=== PATIENT | male | born 1950 | race Caucasian/White ===

== ENCOUNTER 2017-06-15 08:54 | Outpatient (CLI) | payer MEDICARE ==
--- NOTE | 2017-06-15 10:25 | CT ---
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 COMPARISON: 12/16/16. FINDINGS: There is a single nonobstructing superior pole renal calculus bilaterally measuring 3-4 mm. There is no hydronephrosis and no ureteral calculus is visualized. Calcified granulomata are seen in the spleen. The liver, pancreas, bilateral adrenal glands, and urinary bladder demonstrate a normal CT appearance . Minimal atelectasis at the left lung base. Lung bases are otherwise clear. The appendix is visualized and normal in caliber. Minimal vascular calcifications are seen in the abdominal aorta. There is no free fluid, fluid collection, or lymphadenopathy seen in the abdomen or pelvis. There is a surgical scar in the ventral aspect lower abdomen. There is stable mild elevation of the left hemidiaphragm. Degenerative changes are seen in the lower lumbar spine with Grade I-II spondylolisthesis of L5 on S1 . There is a low density area seen in the subcutaneous fat in each gluteal region, which may be related to recent injections. IMPRESSION: 1. Nonobstructing bilateral renal calculi. 2. No evidence of lymphadenopathy. 3. Grade I-II spondylolisthesis lumbosacral junction. 4. CT scan abdomen and pelvis is not significantly changed compared to prior exam. POS: [facility]
[2017-06-15] MEDS ORDERED: Iopamidol 370 76% 100 ML VIAL ONE (16:53)
== END 2017-06-15 08:55 | disposition home or self-care (01) ==
LOC: CT 08:54
PROVIDERS: ATTEND Internal Medicine Hematology & Oncology
DX: C7A.012 Malignant carcinoid tumor of the ileum (principal); M43.17 Spondylolisthesis, lumbosacral region
CPT/HCPCS: 74177; 80053; 82248; 83615; 84100; 84550

== ENCOUNTER 2017-12-06 08:50 | Outpatient (CLI) | payer MEDICARE ==
[~2017-12-06 08:50] MED LIST: Iopamidol 370 76% 100 ML VIAL ONE
== END 2017-12-06 08:51 | disposition home or self-care (01) ==
LOC: BICCT 08:50
PROVIDERS: ATTEND Internal Medicine Hematology & Oncology
DX: C7A.012 Malignant carcinoid tumor of the ileum (principal)
CPT/HCPCS: 74177; 82565

== ENCOUNTER 2018-06-16 10:19 | Outpatient (CLI) | payer MEDICARE ==
--- NOTE | 2018-06-16 12:15 | RAD ---
KUB: Date: 06/16/18 HISTORY: Calculus of kidney. FINDINGS: No definite discrete calcification is seen in the right upper quadrant. There is a punctate calcifica tion overlying the 11th rib on the left measuring in the 2-3 mm range which may represent a stone wit hin the upper pole of the left kidney. The bowel gas patter appears nonobstructed. No acute osseous a bnormality. IMPRESSION: Punctate calcification in left upper quadrant may represent a tiny left renal stone. No discrete calc ulus overlies the expected location of the right kidney. POS: [facility]
== END 2018-06-16 10:20 | disposition home or self-care (01) ==
LOC: RAD 10:19
PROVIDERS: ATTEND Urology
DX: N20.0 Calculus of kidney (principal); N28.89 Other specified disorders of kidney and ureter
CPT/HCPCS: 74018

== ENCOUNTER 2018-06-21 09:12 | Outpatient (CLI) | payer MEDICARE ==
--- NOTE | 2018-06-21 10:32 | CT ---
CT abdomen pelvis: 06/21/2018 COMPARISON: 06/15/2017 and 06/16/2018 HISTORY: Malignant neoplasm, carcinoid tumor of the ileum TECHNIQUE: Axial CT imaging at 5 mm intervals from lung bases through pubic symphysis with IV and ora l contrast. Coronal reformatted imaging. FINDINGS: Imaged lung bases are unremarkable. No free intraperitoneal air or fluid. The liver, gallbladder, spleen, pancreas, and adrenal glands demonstrate no acute findings. There is a nonobstructing stone in the upper pole of the left kidney measuring 4 mm. As on the 06/16/2018 examination, hydronephrosis and proximal hydroureter again noted on the right sec ondary to a 4 mm obstructing stone within the mid right ureter. The degree of obstructive uropathy is not significantly changed. The obstructing stone is at the axial level of the L4-5 intervertebral di sc, slightly progressed distally when compared to the prior study at which time it was at the axial l evel of the L3-4 intervertebral disc. No bowel inflammatory change or bowel obstruction is evident. No pelvic, retroperitoneal, or mesenteric lymphadenopathy is appreciated. Review of the osseous structures demonstrates bilateral L5 pars defects. Prominent degenerative judd e noted at the lumbosacral junction. No discrete lytic or blastic bone lesion. IMPRESSION: No CT evidence of metastatic disease. No evidence for bowel inflammatory change, bowel ob struction, or lymphadenopathy. Hydronephrosis and hydroureter on the right secondary to an obstructing stone within the mid right ur eter as detailed above.
[2018-06-21] MEDS ORDERED: ISOVUE-370 76%-LOCM 1 ML ONE (13:42)
== END 2018-06-21 09:13 | disposition home or self-care (01) ==
LOC: BICCT 09:12
PROVIDERS: ATTEND Internal Medicine Hematology & Oncology
DX: C7A.012 Malignant carcinoid tumor of the ileum (principal); N13.30 Unspecified hydronephrosis
CPT/HCPCS: 74177; Q9966

== ENCOUNTER 2018-06-22 14:17 | Outpatient (CLI) | payer MEDICARE ==
--- NOTE | 2018-06-22 14:45 | RAD ---
FSupine view abdomen HISTORY: Calculus of kidney, and 2 0.0. AP view of abdomen is obtained. Comparison made to previous exam from 06/16/2018. Numerous surgical cale seen in the abdomen. A moderate amount of stool seen in the colon. The abdominal gas pattern is nonspecific. Radiopaque densities seen in the upper and midpole of the left kidney compatible with renal calculi. IMPRESSION: Upper and mid pole left renal calculi.
== END 2018-06-22 14:18 | disposition home or self-care (01) ==
LOC: RAD 14:17
PROVIDERS: ATTEND Urology
DX: N20.0 Calculus of kidney (principal)
CPT/HCPCS: 74018

== ENCOUNTER 2018-06-23 10:11 | Outpatient (CLI) | payer MEDICARE ==
[2018-06-23 15:21] LABS: Hemoglobin 13.8 g/dL (14.0-18.0); Mean Corpuscular HGB CONC 34.5 g/dL (32.0-36.0); Mean Corpuscular Hemoglobin 32.6 pg (27.0-31.0); Mean Corpuscular Volume 94.5 fL (78.0-98.0); Mean Platelet Volume 6.7 fL (7.4-10.4); Platelet Count 260 thou/uL (130-400); RBC Distribution Width 11.8 % (11.5-14.5); Red Blood Cell (RBC) Count 4.24 mill/uL (4.70-6.10); White Blood Cell (WBC) Count 9.4 thou/uL (4.8-10.8)
[2018-06-23 16:04] LABS: Anion Gap 12 mmol/L (10-20); BUN (Urea Nitrogen) 11 mg/dL (8.4-25.7); Calc. Creatinine Clearance 0 mL/min (70-130); Calcium 9.3 mg/dL (7.8-10.44); Carbon Dioxide 26 mmol/L (23-31); Chloride 107 mmol/L (98-107); Estimated GFR-MDRD 80; Glucose 154 mg/dL (80-115); Potassium 3.9 mmol/L (3.5-5.1); Sodium 141 mmol/L (136-145)
== END 2018-06-23 10:12 | disposition home or self-care (01) ==
LOC: LABBT 10:11
PROVIDERS: ATTEND Urology
DX: Z01.818 Encounter for other preprocedural examination (principal); Z12.5 Encounter for screening for malignant neoplasm of prostate; N20.0 Calculus of kidney; R35.1 Nocturia; R82.994 Hypercalciuria; N40.0 Benign prostatic hyperplasia without lower urinary tract symptoms; N52.9 Male erectile dysfunction, unspecified
CPT/HCPCS: 80048; 81001; 85027; 93005; 93010

== ENCOUNTER 2018-06-28 10:42 | Day surgery (SDC) | payer MEDICARE ==
[2018-06-23 14:13] VITALS: BMI 27.9
--- NOTE | 2018-06-28 11:57 | RAD ---
FExam: 1 view abdomen COMPARISON: 06/22/2018 HISTORY: Renal calculi FINDINGS: Punctate ossification projects over the left renal silhouette, measures approximately 3 mm. Bowel gas pattern is nonspecific. IMPRESSION: Solitary calcification projecting over the left renal silhouette.
[2018-06-28] MEDS ORDERED: Iothalamate Meglumine 60% 50 ML VIAL FS ONE (12:58)
[2018-06-28] MEDS ORDERED: Fentanyl 100 MCG/2 ML VIAL ONE ×2 (13:07→15:48)
[2018-06-28] MEDS ORDERED: Midazolam HCl 2 mg/2 ml Vial ONE (13:07)
--- NOTE | 2018-06-28 13:08 | RAD ---
FExam: Chest 2 view HISTORY:Preoperative evaluation Comparison: 31 May 2014 FINDINGS: Lungs: Minimal patchy density at left lateral lung base may relate to pericardial fat pad. Granulomat ous calcific density of left lateral mid chest is present, stable. Cardiac silhouette: Normal size Pulmonary vessels: Normal Pleural Spaces: Clear Pneumothorax: None Osseous abnormalities: None IMPRESSION: No acute cardiopulmonary process.
[2018-06-28] MEDS ORDERED: PROPOFOL 200 MG/20 ML VIAL ONE ×2 (14:41→14:43)
[2018-06-28] MEDS ORDERED: PHENYLEPHRINE-NS 100 MCG/ML 10 ML SYRINGE ONE (14:41)
[2018-06-28] MEDS ORDERED: Rocuronium Bromide 10 MG/ML (10ML VIAL) ONE (14:41)
[2018-06-28] MEDS ORDERED: ePHEDrine 50 MG/ML VIAL ONE (14:41)
[2018-06-28] MEDS ORDERED: Lidocaine 1% PF 5 ML VIAL ONE (14:41)
[2018-06-28] MEDS ORDERED: Dexamethasone 20 MG/5 ML VIAL ONE (14:41)
[2018-06-28] MEDS ORDERED: Ondansetron PF 4 MG/2 ML Vial ONE (14:41)
[2018-06-28] MEDS ORDERED: Glycopyrrolate 0.2 MG/ML 5 ML SYRINGE ONE (14:43)
[2018-06-28] MEDS ORDERED: HYDROcodone/Acetaminophen 5/325 mg Tablet ONE (17:13)
--- NOTE | 2018-06-29 07:44 | OP ---
DATE OF PROCEDURE: 06/28/2018 PREOPERATIVE DIAGNOSES: Right ureteral stone, left renal stone. POSTOPERATIVE DIAGNOSES: Right ureteral stone, left renal stone. PROCEDURES PERFORMED: Cystoscopy, right ureteroscopy, holmium laser lithotripsy, stone basketing, stent placement 6 x 24, and left extracorporeal shockwave lithotripsy. ANESTHESIA: General with ET tube. FINDINGS: A small stone fragmented and removed from the right ureter, 5-mm stone fragmented with extracorporeal shockwave lithotripsy on the left. SPECIMENS: Stone from the right ureter. DRAIN REMAININ x 24 double-J with a string. COMPLICATIONS: No complications other than some superficial laser heat delivered to the ureter. INDICATIONS: The patient is a 67-year-old male, who is followed in the office for multiple issues and noted to have an obstructing right ureteral stone, from which he had significant renal colic, but was otherwise doing okay now and had only moved 1 to 2 cm on the followup CAT scan, so he was set up for definitive therapy. He also had a left 5 mm stone and we opted to proceed with treatment of that at the same time. DESCRIPTION OF PROCEDURE: The patient was brought into the room by Anesthesia, laid on the table in supine position. After receiving general anesthetic, his legs were placed in lithotomy position with the right leg lowered and the left leg elevated, and his perineum was prepped and draped in a sterile fashion. Using a 21-Turkmen cystoscope and 30-degree lens, the urethra was traversed and the bladder inspected. There was mild erythema on the right wall noted, but no masses or other mucosal changes. The right ureteral orifice was intubated with a wire and Pollack catheter and then advanced to the level of the kidney. No hydronephrotic drip was noted. Retrograde pyelogram was performed. No hydronephrosis was noted. Measurements were taken for 6 x 24 at the end. A wire was left in place and then the ureteral orifice dilating balloon was used to go up to a level of 12 mmHg and then it was taken down leaving the wire in place. The scope was broke apart, bladder drained and removed in its entirety, again leaving the wire in place. A rigid ureteroscope was then used to go to the level of stone, which was distal at this time; however, it easily moved up the more dilated ureter and around a bit of a curve, making it difficult to aim the wire on it, and a portion of the ureteral wall was affected by the holmium. At this point, I felt the stone is likely small enough that I could grasp it without further fragmentation, so I used a basket and it was in the basket and then fell through the basket, even though the basket was fully closed. I cannot explain that. I then trying to angle the basket, I felt it would be easier to use further lithotripsy, so the holmium laser was brought back in. The fragment was removed. Then the basket was used to grab the larger remaining fragment, which was sent for final path. The ureter up to the midureter showed no further fragments remaining. So at this point, the wire was left in place. The rigid ureteroscope removed, the cystoscope back fed over the wire and then a 6 x 24 double-J placed over the wire with a coil somewhat extended in the upper pole of the kidney and a good coil visualized in the bladder. The scope was broke apart, bladder drained, and removed carefully leaving the string intact, which was then secured to the patient's penis. He was then transferred to the ESWL suite, where he was laid supine and positioned such that the lithotriptor could identify the stone in multiple planes and then a total of 2500 shocks at a maximum power of 4/6 at a maximum rate of 60 to 90 per minute were delivered. The patient tolerated the procedure well and was then awakened and transferred to PACU in stable condition. Job ID: [id number]
[2018-07-01 15:15] LABS: CA Oxalate Monohydrate 90 % (.); Color Brown (.); Stone Weight 11.3 mg (.)
== END 2018-06-28 18:05 | disposition home or self-care (01) ==
LOC: SDC 10:42
PROVIDERS: ATTEND Urology
PROC: 0TF4XZZ Fragmentation in Left Kidney Pelvis, External Approach (ICD-10-PCS; principal; 2018-06-28)
PROC: 0TF68ZZ Fragmentation in Right Ureter, Via Natural or Artificial Opening Endoscopic (ICD-10-PCS; 2018-06-28)
PROC: 0T768DZ Dilation of Right Ureter with Intraluminal Device, Via Natural or Artificial Opening Endoscopic (ICD-10-PCS; 2018-06-28)
DX: N20.2 Calculus of kidney with calculus of ureter (principal); N52.9 Male erectile dysfunction, unspecified; N40.1 Benign prostatic hyperplasia with lower urinary tract symptoms; R35.0 Frequency of micturition; R35.1 Nocturia; K21.9 Gastro-esophageal reflux disease without esophagitis; F32.9 Major depressive disorder, single episode, unspecified; E03.9 Hypothyroidism, unspecified; Z79.899 Other long term (current) drug therapy
CPT/HCPCS: 71046; 74018; 76000; 82365; 88300; C1758; J2250; J3010; Q9961

== ENCOUNTER 2018-08-17 08:53 | Outpatient (CLI) | payer MEDICARE ==
--- NOTE | 2018-08-17 10:50 | RAD ---
ABDOMEN ONE VIEW: HISTORY: Renal calculi. COMPARISON: 06/28/2018 FINDINGS: Evidence for focal opacity overlying the left upper kidney, which certainly could represent a renal c alculus. There appear to be some surgical sutures overlying the right L2 transverse process region. Gas and fecal material somewhat overly both kidneys. No overt ureteral calculus. IMPRESSION: 1. Evidence for a left upper pole renal calculus or overlying calcification. 2. No overt ureteral calculus. POS: [facility]
== END 2018-08-17 08:54 | disposition home or self-care (01) ==
LOC: RAD 08:53
PROVIDERS: ATTEND Urology
DX: N20.0 Calculus of kidney (principal)
CPT/HCPCS: 74018

== ENCOUNTER 2018-08-25 09:50 | Outpatient (CLI) | payer MEDICARE ==
[2018-08-25] MEDS ORDERED: ISOVUE-370 76%-LOCM 1 ML ONE (11:39)
--- NOTE | 2018-08-25 15:04 | CT ---
CT NECK WITH AND WITHOUT CONTRAST: Date: 08/25/18 HISTORY: 67-year-old male with dysphagia. R13.10. TECHNIQUE: Scan was performed with and without contrast because it was ordered that way, and insurance authoriza tion allows only performing this scan exactly as ordered. FINDINGS: There is mucosal thickening of the bilateral aryepiglottic folds and probably also the true and false vocal cords. Asymmetrical partial effacement of right side of the vallecula, nonspecific. No cervica l lymphadenopathy visualized. Except for those regions obscured by streak artifact from metallic dent al work, no other pathology is identified involving the sublingual, submandibular, parotid, carotid, retropharyngeal, parapharyngeal, perivertebral, posterior cervical, and surveyor instrument assistant, spaces. There are no large vertebral osteophytes that encroach upon the hypopharynx, larynx, or esophagus. Trachea is patent and clear down to the level of the channing. IMPRESSION: 1. Mild thickening of laryngeal mucosal, nonspecific. 2. Otherwise normal. 3. Please note that CTs of the neck should be performed either with contrast only, or without contra st only (in the case of contraindication to iodinated contrast), rather than with and without contras t. The only exception to this is a parathyroid protocol which does require with and without contrast CT. POS: [facility]
== END 2018-08-25 09:51 | disposition home or self-care (01) ==
LOC: BICCT 09:50
PROVIDERS: ATTEND Otolaryngology Plastic Surgery within the Head & Neck
DX: R13.10 Dysphagia, unspecified (principal); J38.7 Other diseases of larynx
CPT/HCPCS: 70492; 82565; Q9966

== ENCOUNTER 2018-10-26 09:21 | Outpatient (CLI) | payer MEDICARE ==
[2018-10-26] MEDS ORDERED: ISOVUE-370 76%-LOCM 1 ML ONE (10:15)
--- NOTE | 2018-10-26 10:53 | CT ---
CT ABDOMEN PELVIS WITH ORAL AND IV CONTRAST: HISTORY: Malignant carcinoid tumor of the ileum. COMPARISON: 06/21/2018 FINDINGS: The lung bases are clear. The liver, spleen, pancreas, adrenal glands and right kidney appear normal. 4 mm nonobstructing calculus in the upper pole of the left kidney is again seen. No calcific gallstones are present. No free air, free fluid or lymphadenopathy is noted in the abdomen or pelvis. The small bowel loops are not abnormally dilated. There are vascular calcifications without evidence of aneurysmal dilatation of the abdominal aorta. There are degenerative changes in the spine. Pars articularis defects at L5 level are again seen. No osteolytic or osteoblastic lesions are noted. The prostate is enlarged. IMPRESSION: No evidence of metastatic disease.
== END 2018-10-26 09:22 | disposition home or self-care (01) ==
LOC: BICCT 09:21
PROVIDERS: ATTEND Internal Medicine Hematology & Oncology
DX: C7A.012 Malignant carcinoid tumor of the ileum (principal)
CPT/HCPCS: 74177; 82565; Q9966

== ENCOUNTER 2019-03-07 09:25 | Outpatient (CLI) | payer MEDICARE ==
--- NOTE | 2019-03-07 10:32 | CT ---
CT Abdomen Pelvis W Con: 03/07/2019 12:00 AM CLINICAL INFORMATION: Malignant carcinoid tumor of the ileum COMPARISON: 10/26/2018 TECHNIQUE: Multiple contiguous axial images were obtained and a CT of the abdomen and pelvis with IV contrast. Oral contrast was administered. Coronal and sagittal reformats were performed. FINDINGS: Lower Chest: within normal limits. Abdomen: Liver: within normal limits. Bile Ducts: Normal caliber. Gallbladder: No calcified gallstones. Normal caliber wall. Pancreas: within normal limits. Spleen: within normal limits. Adrenals: within normal limits. Kidneys: Stable nonobstructing 5 mm left renal calcification. Pelvis: Reproductive Organs: No pelvic masses. Ureters: within normal limits. Bladder: within normal limits. Peritoneum: No ascites or free air, no fluid collection. Bowel: Normal caliber. Mesentery and Retroperitoneum: No enlarged mesenteric or retroperitoneal lymph nodes. Vessels: Normal. Abdominal Wall: There is a 4.4 cm fat-containing ventral hernia. Bones: Degenerative changes are seen in the spine. Bilateral pars defects are seen with grade 1 anter olisthesis of L5 on S1. IMPRESSION: 1. No evidence of recurrent or metastatic disease 2. Stable nonobstructing left renal calcification
[2019-03-07] MEDS ORDERED: Iopamidol-370 76% 500 ML 1 ML ONE (10:51)
== END 2019-03-07 09:26 | disposition home or self-care (01) ==
LOC: BICCT 09:25
PROVIDERS: ATTEND Internal Medicine Hematology & Oncology
DX: C7A.012 Malignant carcinoid tumor of the ileum (principal); N20.0 Calculus of kidney
CPT/HCPCS: 74177; 82565; Q9967

== ENCOUNTER 2019-09-05 09:01 | Outpatient (CLI) | payer MEDICARE ==
[2019-09-05] MEDS ORDERED: Iopamidol-370 76% 500 ML 1 ML ONE (09:16)
--- NOTE | 2019-09-05 13:47 | CT ---
CT ABDOMEN AND PELVIS WITH IV CONTRAST: 09/05/19 Oral contrast was administered. Multiplanar reconstructions INDICATIONS: Malignant carcinoid tumor of ileum, in remission. Follow-up. COMPARISON: Comparison made to CT abdomen and pelvis 03/07/19. FINDINGS: The lung bases clear. Liver, spleen and pancreas appear unremarkable. Stomach and duodenum unremarkable. Adrenal glands normal. Review of kidneys again show a nonobstructing calculus in the upper collecting structures of the left kidney measuring in the 3 mm range. This is a stable calculus and is unchanged in size and position. The kidneys are otherwise unremarkable. Small bowel loops appear normal. Colon is unremarkable. Aorta normal caliber. No evidence of adenopathy. No free fluid or mass lesion. Images through the pelvis show unremarkable urinary bladder. There is mild prostatic hypertrophy whic h is stable. Osseous structures unremarkable. IMPRESSION: 1. Nonobstructing calculus in the upper collecting structures of left kidney, stable. 2. CT abdomen and pelvis otherwise unremarkable and unchanged from the prior study. POS: [facility]
== END 2019-09-05 09:02 | disposition home or self-care (01) ==
LOC: BICCT 09:01
PROVIDERS: ATTEND Internal Medicine Hematology & Oncology
DX: C7A.012 Malignant carcinoid tumor of the ileum (principal); K76.89 Other specified diseases of liver; N20.0 Calculus of kidney
CPT/HCPCS: 74177; 82565; Q9967

== ENCOUNTER 2020-02-27 08:57 | Outpatient (CLI) | payer MEDICARE ==
[2020-02-27] MEDS ORDERED: Iopamidol 370 76% 100 ML VIAL ONE (10:18)
--- NOTE | 2020-02-27 10:30 | CT ---
CT ABDOMEN AND PELVIS WITH IV CONTRAST: Oral contrast was administered. INDICATION: Carcinoid tumor of ileum. Follow-up. Currently in remission. Comparison made to CT abdomen and pelvis dated 09/05/2019. FINDINGS: Lung bases clear. The liver, spleen, and pancreas appear unremarkable. Stomach and duodenum unremarkable. Adrenal gland s normal. 4.0 mm calculus upper pole collecting structures left kidney again noted, unchanged from prior exam. Kidneys otherwise unremarkable. Small bowel loops appear normal. Terminal ileum appears normal. Ileocecal valve appears normal. Appen stefany partially opacifies and appears normal. Colon is opacified. Stool throughout the colon. Colon is otherwise unremarkable. Mucosal lesions are not excluded by CT. Aorta normal caliber with mild atherosclerotic change. No adenopathy. No free fluid. Images through the pelvis show mildly distended bladder. Mild prostatic hypertrophy again noted. Osseous structures again show degenerative change at L5-S1 with loss of disc space, spondylolisthesis , and posterior spondylolysis. Bilateral foraminal stenosis at L5-S1. IMPRESSION: 1. 4.0 mm calculus upper collecting structures left kidney, stable from prior exam. 2. Mild prostatic hypertrophy, stable. 3. Spondylolisthesis and spondylolysis at L5-S1 again noted. 4. No acute finding or interval change. POS: [facility]
== END 2020-02-27 08:58 | disposition home or self-care (01) ==
LOC: BICCT 08:57
PROVIDERS: ATTEND Internal Medicine Hematology & Oncology
DX: C7A.012 Malignant carcinoid tumor of the ileum (principal); N20.0 Calculus of kidney; N40.0 Benign prostatic hyperplasia without lower urinary tract symptoms; M43.17 Spondylolisthesis, lumbosacral region; M47.817 Spondylosis without myelopathy or radiculopathy, lumbosacral region
CPT/HCPCS: 74177; 82565; Q9967

== ENCOUNTER 2020-09-11 09:05 | Outpatient (CLI) | payer MEDICARE ==
[2020-09-11] MEDS ORDERED: Iopamidol-370 76% 500 ML 1 ML ONE (13:52)
== END 2020-09-11 09:06 | disposition home or self-care (01) ==
LOC: BICCT 09:05
PROVIDERS: ATTEND Internal Medicine Hematology & Oncology
DX: C7A.012 Malignant carcinoid tumor of the ileum (principal); N20.0 Calculus of kidney; M47.816 Spondylosis without myelopathy or radiculopathy, lumbar region; M43.16 Spondylolisthesis, lumbar region
CPT/HCPCS: 74177; 82565; Q9967

== ENCOUNTER 2021-03-12 08:58 | Outpatient (CLI) | payer MEDICARE ==
[2021-03-12] MEDS ORDERED: Iopamidol-370 76% 500 ML 1 ML ONE (11:22)
== END 2021-03-12 08:59 | disposition home or self-care (01) ==
LOC: BICCT 08:58
PROVIDERS: ATTEND Internal Medicine Hematology & Oncology
DX: C7A.012 Malignant carcinoid tumor of the ileum (principal)
CPT/HCPCS: 74177; 82565; Q9967

== ENCOUNTER 2021-12-10 08:45 | Outpatient (CLI) | payer MEDICARE ==
[2021-12-10] MEDS ORDERED: Iopamidol-370 76% 500 ML 1 ML ONE (08:58)
== END 2021-12-10 08:46 | disposition home or self-care (01) ==
LOC: BICCT 08:45
PROVIDERS: ATTEND Internal Medicine Hematology & Oncology
DX: C7A.012 Malignant carcinoid tumor of the ileum (principal); N20.0 Calculus of kidney; M43.17 Spondylolisthesis, lumbosacral region; M47.817 Spondylosis without myelopathy or radiculopathy, lumbosacral region
CPT/HCPCS: 74177; 82565; Q9967

== ENCOUNTER 2022-12-09 09:02 | Outpatient (CLI) | payer MEDICARE ==
[2022-12-09] MEDS ORDERED: Iopamidol-370 76% 500 ML MDV (1 ML CHARGE) ONE (11:35)
== END 2022-12-09 09:03 | disposition home or self-care (01) ==
LOC: BICCT 09:02
PROVIDERS: ATTEND Internal Medicine Hematology & Oncology
DX: C7A.012 Malignant carcinoid tumor of the ileum (principal)
CPT/HCPCS: 74177; 82565; Q9967

== ENCOUNTER 2023-06-25 06:09 | Day surgery (SDC) | payer MEDICARE ==
[2023-06-23 10:53] VITALS: BMI 29.5
[2023-06-25 08:02] LABS: #Basophils 0.08 10x3/uL (0.0-0.2); %Eosinophils 3.5 % (0.0-10.0); %Lymphocytes 23.8 % (21.0-51.0); %Monocytes 6.7 % (0.0-10.0); %Neutrophils 64.6 % (42.0-75.0); Hematocrit 46.7 % (42.0-52.0); Hemoglobin 16.5 g/dL (14.0-18.0); Mean Corpuscular HGB CONC 35.3 g/dL (32.0-36.0); Mean Corpuscular Hemoglobin 32.7 pg (27.0-31.0); Mean Corpuscular Volume 92.7 fL (78.0-98.0); Mean Platelet Volume 10.4 fL (7.4-10.4); Platelet Count 299 10x3/uL (130-400); RBC Distribution Width 12.7 % (11.5-14.5); Red Blood Cell (RBC) Count 5.04 mill/uL (4.70-6.10)
[2023-06-25 09:02] LABS: Anion Gap 13 mmol/L (10-20); BUN (Urea Nitrogen) 13 mg/dL (8.4-25.7); Calc. Creatinine Clearance 90 mL/min (70-130); Calcium 9.5 mg/dL (7.8-10.44); Carbon Dioxide 24 mmol/L (23-31); Chloride 106 mmol/L (98-107); Estimated GFR 87; Glucose 109 mg/dL (83-110); Potassium 4.1 mmol/L (3.5-5.1); Sodium 139 mmol/L (136-145)
[2023-06-25] MEDS ORDERED: fentaNYL PF 100 MCG/2 ML SYRINGE ONE (09:16)
[2023-06-25] MEDS ORDERED: PROPOFOL 40 ML ONE (09:16)
[2023-06-25] MEDS ORDERED: Famotidine/PF 20 mg/2ml Vial ONE (09:19)
[2023-06-25] MEDS ORDERED: Iopamidol 0 ML ONE (09:23)
[2023-06-25] MEDS ORDERED: LevoFLOXacin D5W 500 mg (100 mL) BAG ONE (09:26)
[2023-06-25] MEDS ORDERED: Lidocaine 1% PF 5 ML VIAL ONE (09:36)
[2023-06-25] MEDS ORDERED: Ondansetron PF 4 MG/2 ML Vial ONE (09:44)
[2023-06-25] MEDS ORDERED: Dexamethasone 4 mg/ml Vial ONE (09:44)
[2023-06-25] MEDS ORDERED: ePHEDrine Sulfate 50 MG/10 ML VIAL ONE (09:50)
[2023-06-25] MEDS ORDERED: Ketorolac Tromethamine 30 MG (1 mL) VIAL ONE (10:47)
[2023-06-25] MEDS ORDERED: Phenazopyridine HCl 100 MG TAB ONE (10:54)
[2023-06-25] MEDS ORDERED: Oxybutynin 5 MG TAB ONE (10:55)
[2023-06-25] MEDS ORDERED: HYDROcodone/Acetaminophen 5/325 mg Tablet ONE (12:09)
== END 2023-06-25 13:20 | disposition home or self-care (01) ==
LOC: SDC 06:09
PROVIDERS: ATTEND Urology
PROC: 0TC78ZZ Extirpation of Matter from Left Ureter, Via Natural or Artificial Opening Endoscopic (ICD-10-PCS; principal; 2023-06-25)
DX: N20.0 Calculus of kidney (principal); K21.9 Gastro-esophageal reflux disease without esophagitis; E66.9 Obesity, unspecified; F32.A Depression, unspecified; N50.811 Right testicular pain; N50.812 Left testicular pain; E03.9 Hypothyroidism, unspecified; E29.1 Testicular hypofunction; Z79.899 Other long term (current) drug therapy; Z98.890 Other specified postprocedural states; Z90.79 Acquired absence of other genital organ(s); Z68.29 Body mass index [BMI] 29.0-29.9, adult
CPT/HCPCS: 52356; 80048; 85025; 93005; C1769; C2617; 36415; 82365; 88300; 93010; J1100; J1885; J1956; J2405; J2704; Q9967; S0028

== ENCOUNTER 2023-10-14 09:35 | Outpatient (CLI) | payer MEDICARE | END 2023-10-14 09:36 | disposition home or self-care (01) | LOC: BICULT 09:35 | PROVIDERS: ATTEND Urology | DX: N20.0 Calculus of kidney (principal) | CPT/HCPCS: 76770 ==

== ENCOUNTER 2024-12-05 09:48 | Outpatient (CLI) | payer MEDICARE ==
[2024-12-05 10:33] LABS: Estimated GFR - POC 80.0
[2024-12-05] MEDS ORDERED: Iopamidol 370 76% 100 ML VIAL ONE (14:50)
== END 2024-12-05 09:49 | disposition home or self-care (01) ==
LOC: CT 09:48
PROVIDERS: ATTEND Internal Medicine Hematology & Oncology
DX: C7A.012 Malignant carcinoid tumor of the ileum (principal); K63.89 Other specified diseases of intestine
CPT/HCPCS: 36415; 74177; 82565; Q9967